=== PATIENT | female | born 1930 | race Caucasian/White ===

== ENCOUNTER 2017-07-28 04:23 | Emergency (ER) | payer MEDICARE ==
[2017-07-28 05:12] LABS: Alcohol 142 mg/dL (Less than 10); Anion Gap 16 mmol/L (10-20); BUN (Urea Nitrogen) 14 mg/dL (9.8-20.1); Calc. Creatinine Clearance 0 mL/min (70-130); Calcium 9.9 mg/dL (7.8-10.44); Carbon Dioxide 20 mmol/L (23-31); Chloride 98 mmol/L (98-107); Estimated GFR-MDRD 78; Glucose 159 mg/dL (83-110); Sodium 130 mmol/L (136-145)
[2017-07-28 05:13] LABS: Hemoglobin 13.5 g/dL (12.0-16.0); Mean Corpuscular HGB CONC 35.3 g/dL (32.0-36.0); Mean Corpuscular Hemoglobin 37.8 pg (27.0-31.0); Platelet Count 226 thou/uL (130-400); RBC Distribution Width 11.8 % (11.5-14.5); Red Blood Cell (RBC) Count 3.56 mill/uL (4.20-5.40); White Blood Cell (WBC) Count 8.6 thou/uL (4.8-10.8)
[2017-07-28 05:30] LABS: #Eosinphils 0.1 thou/uL (0.0-0.7); #Lymphocytes 1.2 thou/uL (1.20-3.40); #Monocytes 0.4 thou/uL (0.11-0.59); #Neutrophils 6.9 thou/uL (1.40-6.50); %Basophils 0.5 % (0.0-1.0); %Eosinophils 0.7 % (0.0-10.0); %Monocytes 4.3 % (0.0-10.0); %Neutrophils 80.5 % (42.0-75.0); MDiff Complete? YES; Macrocytosis SLIGHT = 6-15 cells (100X) (0-5/hpf); PLT Morphology Comment Appears Adequate
--- NOTE | 2017-07-28 08:49 | CT ---
PRELIMINARY REPORT/[facility]/EMERGENTY AFTER-HOURS PROCEDURE CT Cervical Spine Without Intravenous Contrast CLINICAL HISTORY: 87 years old, female; Injury or trauma; Fall; Initial encounter; Abrasion; Patient HX: Er 5; 87 yo f presents to ed S/P fall. Ems reports pt fell in kitchen earlier tonight after drinking wine and notif ied ems. Ems reports pt does not remember the fall. Ems reports no obvious injury, but that the pt "mostly likely hit her head. " ems reports pt vomited and defecated on floor at home. Ems reports the y often see this pt after she drinks too much wine and falls. TECHNIQUE: Axial computed tomography images of the cervical spine without intravenous contrast. Coronal and sagi ttal reformatted images were created and reviewed. COMPARISON: No relevant prior studies available. FINDINGS: Vertebrae: No acute cervical spine fracture. Discs/spinal canal/neural foramina: The cervical spine demonstrates mild degenerative changes at mult iple levels. The vertebral foramen are grossly intact. No spinal canal stenosis. Soft tissues: Normal. Esophagus: There is marked nonspecific thickening of the esophagus. Lung apices: Unremarkable as visualized. IMPRESSION: 1. No acute cervical spine fracture. 2. There is marked nonspecific thickening of the esophagus. If not already performed, non-emergent di rect inspection is advised. Thank you for allowing us to participate in the care of your patient. Dictated and Authenticated by: Washington Gordon MD 07/28/2017 5:25 AM Central Time ([place] & [place]) CT CERVICAL SPINE NONCONTRAST: Date: 07-28-17 performed on emergency basis at 0455 hours. History: Fall. Neck injury. FINDINGS: I agree with the preliminary report by Dr. Gordon from [facility]. Degenerative changes. No ac [place] osseous abnormalities are demonstrated. Esophagus is thickened. Correlation with clinical finding s of esophageal abnormalities is required. Code QA. POS: OFF
--- NOTE | 2017-07-28 08:51 | CT ---
PRELIMINARY REPORT/[facility]/EMERGENTY AFTER-HOURS PROCEDURE CT Head Without Intravenous Contrast CLINICAL HISTORY: 87 years old, female; Injury or trauma; Fall; Initial encounter; Abrasion; Not specified; Patient HX: Er 5; 87 yo f presents to ed S/P fall. Ems reports pt fell in kitchen earlier tonight after drinking wine and notified ems. Ems reports pt does not remember the fall. Ems reports no obvious injury, but that the pt "mostly likely hit her head. " ems reports pt vomited and defecated on floor at home. Ems reports they often see this pt after she drinks too much wine and falls. TECHNIQUE: Axial computed tomography images of the head/brain without intravenous contrast. COMPARISON: No relevant prior studies available. FINDINGS: Brain: There is moderate to marked parenchymal volume loss. No hemorrhage. No significant white matte r disease. Ventricles: Normal. No ventriculomegaly. Bones/joints: Normal. No acute fracture. Soft tissues: Normal. Sinuses: Unremarkable as visualized. No acute sinusitis. Mastoid air cells: Unremarkable as visualized. No mastoid effusion. IMPRESSION: No acute intracranial hemorrhage. Thank you for allowing us to participate in the care of your patient. Dictated and Authenticated by: Washington Gordon MD 07/28/2017 5:22 AM Central Time ([place] & [place]) CT HEAD NONCONTRAST: Date: 07-28-17 Performed on emergency basis at 0457 hours. History: Fall, head injury. Comparison: 06-28-08 FINDINGS: I agree with the preliminary report by Dr. Gordon from [facility]. No acute intracranial abnor malities are demonstrated. Code QA POS: OFF
== END 2017-07-28 06:50 | disposition home or self-care (01) ==
LOC: ERS 04:23
DX: F10.129 Alcohol abuse with intoxication, unspecified (principal); Z04.3 Encounter for examination and observation following other accident; K21.9 Gastro-esophageal reflux disease without esophagitis; I10 Essential (primary) hypertension; F41.9 Anxiety disorder, unspecified; F32.9 Major depressive disorder, single episode, unspecified
CPT/HCPCS: 70450; 72125; 80048; 80307; 85025; 93005